=== PATIENT | female | born 1990 | race Caucasian/White ===

== ENCOUNTER 2018-12-19 07:57 | Emergency (ER) | payer MEDICAID, OTHER ==
[~2018-12-19] VITALS: Ht 165.1 cm; Wt 54.5 kg
[~2018-12-19 07:57] MED LIST: HYDR-4383 PO; IMIQ1CRE TP; NAPR-56 PO; OMEP-84 PO; ONDA4TAB6 PO; ONDA8TAB13 PO; ONDA8TAB6 PO; PANT-47 PO; PROM25TA14 PO
[2018-12-19] MEDS ORDERED: normal saline 1000ML IV soln IVB ONE ×2 (08:05→09:50)
[2018-12-19] MEDS ORDERED: ondansetron/PF 4mg/2ml inj IV ONE (08:05)
[2018-12-19 08:24] LABS: BASOPHILS # (AUTO) 0.1 X10'3 (0-0.2); BASOPHILS % (AUTO) 0.3 % (0-1); EOSINOPHILS # (AUTO) 0.2 X10'3 (0-0.9); EOSINOPHILS % (AUTO) 0.7 % (0-6); HEMATOCRIT 39.4 % (35.0-45.0); HEMOGLOBIN 13.1 g/dl (12.0-16.0); LYMPHOCYTES # (AUTO) 0.6 X10'3 (1.1-4.8); LYMPHOCYTES % (AUTO) 2.3 % (21-51); MEAN CORPUSCULAR HEMOGLOBIN 31.8 PG (27.0-31.0); MEAN CORPUSCULAR HGB CONC 33.3 g/dL (33.0-36.5); MEAN CORPUSCULAR VOLUME 95.5 FL (78-98); MEAN PLATELET VOLUME 7.5 FL (7.4-10.4); MONOCYTES % (AUTO) 3.9 % (2-12); NEUTROPHILS # (AUTO) 23.8 X10'3 (1.8-7.7); NEUTROPHILS % (AUTO) 92.8 % (42-75); PLATELET COUNT 318 X10'3 (140-440); RED BLOOD COUNT 4.13 X10'6 (4.20-5.60); RED CELL DISTRIBUTION WIDTH 11.7 % (11.5-14.5)
[2018-12-19 08:27] LABS: WHITE BLOOD COUNT 25.7 X10'3 (4.5-11.0)
[2018-12-19] MEDS ORDERED: CefTRIAXone 2gm/D5W 50ml 50 ML IV ONE (08:35)
[2018-12-19 08:45] LABS: CLARITY,URINE SLIGHTLY CLOUDY (Clear); COLOR,URINE YELLOW (Yellow); GLUCOSE, URINE NEGATIVE (Neg); KETONES,URINE 15 mg/dl (Neg); LEUKOCYTE ESTERASE ,URINE MODERATE (Neg); NITRITES, URINE POSITIVE (Neg); OCCULT BLOOD,URINE SMALL (Neg); PH,URINE 6.5 (4.8-8.0); PROTEIN,URINE NEGATIVE (Neg); UROBILINOGEN,URINE 0.2 E.U/dL (0.2-1.0)
[2018-12-19 08:45] LABS: ALANINE AMINOTRANSFERASE 38 U/L (12-78); ALBUMIN 3.3 G/DL (3.4-5.0); ALBUMIN/GLOBULIN RATIO 0.9 (1.1-1.5); ALKALINE PHOSPHATASE 80 IU/L (46-116); ANION GAP 8 (8-16); ASPARTATE AMINO TRANSFERASE 15 U/L (10-37); BILIRUBIN,TOTAL 0.9 MG/DL (0.1-1.0); BLOOD UREA NITROGEN 14 MG/DL (7-18); BUN/CREATININE RATIO 18.9 (6.6-38.0); CALCIUM 8.3 MG/DL (8.5-10.1); CHLORIDE 102 MMOL/L (99-107); CREATININE 0.74 MG/DL (0.40-0.90); ETHANOL < 0.010 GM/DL (0.0-0.010); GLUCOSE 122 MG/DL (70-104); LIPASE 54 U/L (73-393); POTASSIUM 3.4 MMOL/L (3.5-5.1); SODIUM 135 MMOL/L (135-145); TOTAL CARBON DIOXIDE 25.4 MMOL/L (24-32); eGFR > 90 ML/MIN
[2018-12-19 08:47] LABS: UA COLLECTION TYPE CLN CATCH MIDSTREAM
[2018-12-19 08:48] LABS: URINE HCG NEGATIVE (NEG)
[2018-12-19 08:51] LABS: PLATELET ESTIMATE NORMAL; TOTAL CELLS COUNTED 100
[2018-12-19 08:53] LABS: BACTERIA,URINE 3+ /HPF (Neg); MUCUS STRANDS NONE SEEN /LPF (Neg); RBC,URINE 0-2 /HPF (0-2); SQUAMOUS EPITHELIAL CELL,UR FEW /LPF (FEW)
[2018-12-19 09:14] LABS: URINE AMPHETAMINE SCREEN POSITIVE (Neg); URINE BARBITUATE SCREEN NEGATIVE (Neg); URINE BENZODIAZEPINES SCREEN NEGATIVE (Neg); URINE CANNABINOID SCREEN POSITIVE (Neg); URINE COCAINE SCREEN NEGATIVE (Neg); URINE METHADONE SCREEN NEGATIVE (Neg); URINE OPIATE SCREEN NEGATIVE (Neg); URINE PHENCYCLIDINE SCREEN NEGATIVE (Neg)
[2018-12-19] MEDS ORDERED: ketorolac trometh. 30mg/ml inj. IV ONE (10:00)
[2018-12-19 10:14] VITALS: BP 118/50
[2018-12-19] MEDS ORDERED: CEPH-571 PO (11:31)
== END 2018-12-19 11:43 | disposition home or self-care (01) ==
LOC: ER 07:58
DX: N39.0 Urinary tract infection, site not specified (principal); F10.29 Alcohol dependence with unspecified alcohol-induced disorder; F15.90 Other stimulant use, unspecified, uncomplicated; D72.829 Elevated white blood cell count, unspecified; G89.29 Other chronic pain; F12.90 Cannabis use, unspecified, uncomplicated; Z88.6 Allergy status to analgesic agent; Z91.013 Allergy to seafood; Z79.899 Other long term (current) drug therapy; Z87.42 Personal history of other diseases of the female genital tract
CPT/HCPCS: 36415; 74176; 76830; 76856; 80053; 80305; 80320; 81001; 81025; 83605; 83690; 84145; 85025; 87040; 87077; 87088; 87186; 96365; 96375; 99284; J0696; J1885; J2405; J7030

== ENCOUNTER 2020-04-29 05:50 | Emergency (ER) | payer SELFPAY ==
[~2020-04-29] VITALS: Ht 165.1 cm; Wt 56.8 kg
[~2020-04-29 05:50] MED LIST changes: +CEPH-571 PO
[2020-04-29 05:55] VITALS: BP 130/95
== END 2020-04-29 06:50 | disposition home or self-care (01) ==
LOC: ER 05:50
DX: B34.9 Viral infection, unspecified (principal); R05 Cough; R68.83 Chills (without fever); Z20.828 Contact with and (suspected) exposure to other viral communicable diseases; G89.29 Other chronic pain; F17.200 Nicotine dependence, unspecified, uncomplicated; F12.90 Cannabis use, unspecified, uncomplicated; F15.90 Other stimulant use, unspecified, uncomplicated; Z72.89 Other problems related to lifestyle; Z88.6 Allergy status to analgesic agent; Z91.013 Allergy to seafood; Z79.899 Other long term (current) drug therapy
CPT/HCPCS: 36415; 87635; 99283

== ENCOUNTER 2020-05-02 01:54 | Emergency (ER) | payer MEDICAID ==
[~2020-05-02] VITALS: Ht 162.6 cm; Wt 55.0 kg
--- NOTE | 2020-05-02 02:25 | NUR ---
MD AWARE PATIENT IN TENT, PATIENT C/O CHILLS AND BODY ACHES MADE A MAKE SHIFT BED WITH BLANKETS, PATIENT VERBALIZED INCREASED COMFORT, RR EVEN UN LABORED NO OBSERVABLE S/S OF ACUTE RESPIRATORY DISTRESS AT THIS TIME WILL CONTINUE TO MONITOR
[2020-05-02] MEDS ORDERED: normal saline 1000ml 1,000 ML IVB ONE (04:05)
[2020-05-02] MEDS ORDERED: PRED20TA PO (04:34)
[2020-05-02] MEDS ORDERED: DOXY100C43 PO (04:34)
[2020-05-02] MEDS ORDERED: ALBU18HF2 INH (04:34)
[2020-05-02] MEDS ORDERED: acetaminophen 325mg tablet PO ONE (04:40)
[2020-05-02 04:53] VITALS: BP 127/74
== END 2020-05-02 04:55 | disposition home or self-care (01) ==
LOC: ER 01:54
DX: J20.9 Acute bronchitis, unspecified (principal); R53.83 Other fatigue; R05 Cough; Z20.828 Contact with and (suspected) exposure to other viral communicable diseases; G89.29 Other chronic pain; F12.90 Cannabis use, unspecified, uncomplicated; F15.90 Other stimulant use, unspecified, uncomplicated; Z72.0 Tobacco use; Z72.89 Other problems related to lifestyle; Z88.8 Allergy status to other drugs, medicaments and biological substances; Z91.013 Allergy to seafood; Z79.2 Long term (current) use of antibiotics; Z79.899 Other long term (current) drug therapy
CPT/HCPCS: 36415; 84145; 87635; 96360; 99283; 99406; C9803; J7030

== ENCOUNTER 2020-05-04 20:21 | Emergency (ER) | payer MEDICAID ==
[~2020-05-04] VITALS: Ht 165.1 cm; Wt 56.8 kg
[~2020-05-04 20:21] MED LIST changes: +ALBU18HF2 INH; +DOXY100C43 PO; +PRED20TA PO
[2020-05-04 20:44] LABS: URINE HCG NEGATIVE (NEG)
[2020-05-04 20:45] LABS: CLARITY,URINE CLEAR (Clear); COLOR,URINE YELLOW (Yellow); GLUCOSE, URINE NEGATIVE (Neg); KETONES,URINE NEGATIVE (Neg); LEUKOCYTE ESTERASE ,URINE TRACE (Neg); NITRITES, URINE NEGATIVE (Neg); OCCULT BLOOD,URINE NEGATIVE (Neg); PROTEIN,URINE NEGATIVE (Neg); UROBILINOGEN,URINE 0.2 E.U/dL (0.2-1.0)
[2020-05-04 20:46] LABS: UA COLLECTION TYPE CLN CATCH MIDSTREAM
[2020-05-04 20:55] LABS: BACTERIA,URINE 1+ /HPF (Neg); MUCUS STRANDS MODERATE /LPF (Neg); RBC,URINE NONE SEEN /HPF (0-2); SQUAMOUS EPITHELIAL CELL,UR MODERATE /LPF (FEW)
[2020-05-04 21:02] LABS: BASOPHILS # (AUTO) 0.1 X10'3 (0-0.2); BASOPHILS % (AUTO) 0.4 % (0-1); EOSINOPHILS # (AUTO) 0.3 X10'3 (0-0.9); EOSINOPHILS % (AUTO) 1.7 % (0-6); HEMATOCRIT 38.9 % (35.0-45.0); HEMOGLOBIN 13.1 g/dl (12.0-16.0); LYMPHOCYTES # (AUTO) 1.3 X10'3 (1.1-4.8); LYMPHOCYTES % (AUTO) 6.9 % (21-51); MEAN CORPUSCULAR HEMOGLOBIN 31.4 PG (27.0-31.0); MEAN CORPUSCULAR HGB CONC 33.7 g/dL (33.0-36.5); MEAN CORPUSCULAR VOLUME 93.2 FL (78-98); MEAN PLATELET VOLUME 7.6 FL (7.4-10.4); MONOCYTES # (AUTO) 1.7 X10'3 (0-0.9); MONOCYTES % (AUTO) 9.5 % (2-12); NEUTROPHILS # (AUTO) 14.9 X10'3 (1.8-7.7); NEUTROPHILS % (AUTO) 81.5 % (42-75); PLATELET COUNT 387 X10'3 (140-440); RED BLOOD COUNT 4.18 X10'6 (4.20-5.60); RED CELL DISTRIBUTION WIDTH 11.8 % (11.5-14.5); WHITE BLOOD COUNT 18.2 X10'3 (4.5-11.0)
[2020-05-04 21:20] LABS: ALANINE AMINOTRANSFERASE 14 U/L (12-78); ALBUMIN 3.3 G/DL (3.4-5.0); ALBUMIN/GLOBULIN RATIO 0.8 (1.1-1.5); ALKALINE PHOSPHATASE 92 IU/L (46-116); ANION GAP 7 (8-16); ASPARTATE AMINO TRANSFERASE 8 U/L (10-37); BILIRUBIN,TOTAL 0.5 MG/DL (0.1-1.0); BLOOD UREA NITROGEN 8 MG/DL (7-18); BUN/CREATININE RATIO 9.8 (6.6-38.0); CALCIUM 8.9 MG/DL (8.5-10.1); CHLORIDE 101 MMOL/L (99-107); CREATININE 0.82 MG/DL (0.40-0.90); GLUCOSE 103 MG/DL (70-104); LIPASE < 50 U/L (73-393); POTASSIUM 3.9 MMOL/L (3.5-5.1); SODIUM 136 MMOL/L (135-145); TOTAL CARBON DIOXIDE 28.1 MMOL/L (24-32); TOTAL PROTEIN 7.7 G/DL (6.4-8.2); eGFR 84 ML/MIN
[2020-05-04] MEDS ORDERED: ondansetron/PF 4mg/2ml inj IV ONE (22:25)
[2020-05-04] MEDS ORDERED: normal saline 1000ML IV soln IVB ONE (22:25)
[2020-05-04] MEDS ORDERED: pantoprazole 40 MG vial IV ONE (22:25)
[2020-05-04] MEDS ORDERED: CefTRIAXone/D5W-Rocephin 1gm 50 ML IV ONE (23:15)
[2020-05-04] MEDS ORDERED: AMOX500C2 PO (23:37)
[2020-05-04 23:42] VITALS: BP 113/78
[2020-05-05] MEDS ORDERED: amoxicillin 250mg capsule PO ONE (00:25)
[2020-05-05] MEDS ORDERED: DOXYCYCLINE 100MG CAPSULE PO ONE (00:25)
== END 2020-05-05 00:59 | disposition home or self-care (01) ==
LOC: ER 20:22
DX: J18.9 Pneumonia, unspecified organism (principal); F12.10 Cannabis abuse, uncomplicated; F15.10 Other stimulant abuse, uncomplicated; Z88.8 Allergy status to other drugs, medicaments and biological substances; Z91.013 Allergy to seafood; Z79.899 Other long term (current) drug therapy
CPT/HCPCS: 36415; 71045; 74176; 80053; 81001; 81025; 83605; 83690; 84145; 85025; 87040; 87088; 96361; 96365; 96375; 99285; C9113; J0696; J2405; J7030

== ENCOUNTER 2023-04-20 08:47 | Emergency (ER) | payer MEDICAID ==
[~2023-04-20] VITALS: Ht 167.6 cm; Wt 68.6 kg
[~2023-04-20 08:47] MED LIST changes: -CEPH-571 PO; +DOCU100C40 PO; -DOXY100C43 PO; -HYDR-4383 PO; -IMIQ1CRE TP; -NAPR-56 PO; -OMEP-84 PO; -ONDA4TAB6 PO; -ONDA8TAB13 PO; -ONDA8TAB6 PO; -PANT-47 PO; +POLY119P2 PO; -PRED20TA PO; -PROM25TA14 PO; +SENN-263 PO
[2023-04-20 08:54] VITALS: BP 132/94; PULSE 99; O2SAT 100
--- NOTE | 2023-04-20 09:41 | NUR ---
PT IS BREATHING ANF TALKING WITHOUT ANY SIGNS OF DISTRESS, PT IS INPAIN DUE TO TOOTHACHE. PT DOES USE RECREATIONAL IV METHEMPHETAMINE
--- NOTE | 2023-04-20 09:42 | NUR ---
pt states oral pain on right side x 3 days patient is showing signs of being in severe pain. pt states she would just like antibiotics and started having stomavh aches yesterday. XPLVN
[2023-04-20 09:44] VITALS: RESP 18
[2023-04-20] MEDS ORDERED: AMOX-117 PO (09:52)
[2023-04-20] MEDS ORDERED: NAPR-56 PO (09:52)
[2023-04-20 10:14] VITALS: TEMP 98
== END 2023-04-20 10:16 | disposition home or self-care (01) ==
LOC: ER 08:48
DX: K02.9 Dental caries, unspecified (principal); K08.89 Other specified disorders of teeth and supporting structures; R11.0 Nausea; G89.29 Other chronic pain; F12.90 Cannabis use, unspecified, uncomplicated; F15.90 Other stimulant use, unspecified, uncomplicated; Z72.89 Other problems related to lifestyle; Z91.041 Radiographic dye allergy status; Z91.013 Allergy to seafood; Z79.899 Other long term (current) drug therapy
CPT/HCPCS: 99283

== ENCOUNTER 2024-03-11 23:13 | Emergency (ER) | payer MEDICAID ==
[~2024-03-11] VITALS: Ht 167.6 cm; Wt 66.9 kg
[2024-03-11 23:50] LABS: OCCULT BLOOD STOOL POSITIVE (Neg)
[2024-03-12 00:07] LABS: URINE HCG NEGATIVE (NEG)
[2024-03-12 00:16] LABS: BILIRUBIN,URINE SMALL (Neg); CLARITY,URINE CLOUDY (Clear); COLOR,URINE YELLOW (Yellow); GLUCOSE, URINE NEGATIVE (Neg); KETONES,URINE TRACE mg/dl (Neg); LEUKOCYTE ESTERASE ,URINE TRACE (Neg); NITRITES, URINE NEGATIVE (Neg); OCCULT BLOOD,URINE TRACE-INTACT (Neg); PROTEIN,URINE TRACE mg/dl (Neg); UROBILINOGEN,URINE 0.2 E.U/dL (0.2-1.0)
[2024-03-12] MEDS: normal saline 1000ML IV soln IVB ONE (00:16)
[2024-03-12] MEDS: ondansetron/PF 4mg/2ml inj IV ONE (00:21)
[2024-03-12] MEDS: glycopyrrolate 0.2mg/ml inj IV ONE (00:21)
[2024-03-12 00:26] LABS: UA COLLECTION TYPE CLN CATCH MIDSTREAM
[2024-03-12 00:27] LABS: MUCUS STRANDS MODERATE /LPF (Neg); SQUAMOUS EPITHELIAL CELL,UR MANY /LPF (FEW)
[2024-03-12 00:31] LABS: BACTERIA,URINE FEW /HPF (Neg); RBC,URINE 0-2 /HPF (0-2)
[2024-03-12 00:32] LABS: CAL OXALATE CRYSTALS 4+ /HPF (NEGATIVE)
[2024-03-12 00:36] LABS: BASOPHILS % (AUTO) 0.3 % (0-1); EOSINOPHILS # (AUTO) 0.2 X10'3 (0-0.9); EOSINOPHILS % (AUTO) 2.4 % (0-6); HEMATOCRIT 41.9 % (35.0-45.0); HEMOGLOBIN 13.9 g/dl (12.0-16.0); LYMPHOCYTES # (AUTO) 0.5 X10'3 (1.1-4.8); LYMPHOCYTES % (AUTO) 7.3 % (21-51); MEAN CORPUSCULAR HEMOGLOBIN 31.2 PG (27.0-31.0); MEAN CORPUSCULAR HGB CONC 33.1 g/dL (33.0-36.5); MEAN CORPUSCULAR VOLUME 94.4 FL (78-98); MEAN PLATELET VOLUME 8.2 FL (7.4-10.4); MONOCYTES # (AUTO) 0.8 X10'3 (0-0.9); MONOCYTES % (AUTO) 10.1 % (2-12); NEUTROPHILS # (AUTO) 5.9 X10'3 (1.8-7.7); NEUTROPHILS % (AUTO) 79.9 % (42-75); PLATELET COUNT 312 X10'3 (140-440); RED BLOOD COUNT 4.45 X10'6 (4.20-5.60); RED CELL DISTRIBUTION WIDTH 12.3 % (11.5-14.5); WHITE BLOOD COUNT 7.4 X10'3 (4.5-11.0)
[2024-03-12 01:00] LABS: ALANINE AMINOTRANSFERASE 25 U/L (12-78); ALBUMIN 3.6 G/DL (3.4-5.0); ALBUMIN/GLOBULIN RATIO 0.9 (1.1-1.5); ALKALINE PHOSPHATASE 76 IU/L (46-116); ANION GAP 12 (8-16); ASPARTATE AMINO TRANSFERASE 28 U/L (10-37); BILIRUBIN,TOTAL 0.2 MG/DL (0.1-1.0); BLOOD UREA NITROGEN 12 MG/DL (7-18); CALCIUM 8.7 MG/DL (8.5-10.1); CHLORIDE 99 MMOL/L (99-107); CREATININE 0.75 MG/DL (0.40-0.90); GLUCOSE 97 MG/DL (70-104); POTASSIUM 3.4 MMOL/L (3.5-5.1); SODIUM 136 MMOL/L (135-145); TOTAL CARBON DIOXIDE 25.1 MMOL/L (24-32); TOTAL PROTEIN 7.4 G/DL (6.4-8.2); eCRCL 102 ML/MIN; eGFR 90 ML/MIN
[2024-03-12 01:08] LABS: LIPASE 16 U/L (16-77)
[2024-03-12 01:10] LABS: BETA HCG,QUANTITATIVE < 1.0 mIU/ml
[2024-03-12 02:11] VITALS: BP 118/75; PULSE 102; RESP 18; TEMP 98.4; O2SAT 99
== END 2024-03-12 02:13 | disposition home or self-care (01) ==
LOC: ER 23:13
DX: K62.5 Hemorrhage of anus and rectum (principal); R19.7 Diarrhea, unspecified; F12.90 Cannabis use, unspecified, uncomplicated; F15.90 Other stimulant use, unspecified, uncomplicated; Z91.041 Radiographic dye allergy status; Z91.013 Allergy to seafood; Z79.899 Other long term (current) drug therapy
CPT/HCPCS: 36415; 80053; 81001; 81025; 82272; 83690; 84145; 84702; 85025; 87045; 87046; 96361; 96374; 96375; 99284; J2405; J3490; J7030; 81003; 87324; 87449